=== PATIENT | male | born 1965 | race Caucasian/White ===

== ENCOUNTER → 2024-02-09 15:26 | Outpatient (REF) | payer BC, SELFPAY | LOC: HWRCS 15:26 | PROVIDERS: ATTENDING PHYSICIAN Nurse Practitioner Family | DX: E66.9 Obesity, unspecified (principal); R07.89 Other chest pain; I10 Essential (primary) hypertension; E78.2 Mixed hyperlipidemia | CPT/HCPCS: 93306 ==

== ENCOUNTER → 2024-02-27 14:16 | Outpatient (REF) | payer BC, SELFPAY | LOC: RCS 14:16 | PROVIDERS: ATTENDING PHYSICIAN Nurse Practitioner Family | DX: E66.9 Obesity, unspecified (principal); R07.89 Other chest pain; I10 Essential (primary) hypertension; E78.2 Mixed hyperlipidemia | CPT/HCPCS: 93017 ==

== ENCOUNTER → 2024-02-27 | Outpatient (REF) | payer BC, SELFPAY | LOC: DHSLP | PROVIDERS: ATTENDING PHYSICIAN Internal Medicine Critical Care Medicine; FAMILY PHYSICIAN Internal Medicine | DX: G47.33 Obstructive sleep apnea (adult) (pediatric) (principal) | CPT/HCPCS: 95800 ==

== ENCOUNTER → 2024-09-13 12:00 | Outpatient (REF) | payer BC, SELFPAY | LOC: DHSLP 12:00 | PROVIDERS: ATTENDING PHYSICIAN Internal Medicine Critical Care Medicine; FAMILY PHYSICIAN Internal Medicine | DX: G47.33 Obstructive sleep apnea (adult) (pediatric) (principal) | CPT/HCPCS: 95800 ==